=== PATIENT | male | born 1950 | race Caucasian/White ===

== ENCOUNTER 2022-09-02 07:34 | Inpatient (IN) | payer MEDICAID, MEDICARE ==
[~2022-09-02] VITALS: Ht 177.8 cm; Wt 99.9 kg
[2022-09-02] MEDS ORDERED: ACETAMINOPHEN 1000 MG/ISO-OSM 100 ML IV ONE (07:45)
[2022-09-02 07:52] LABS: BASOPHILS % (AUTO) 0.8 % (0.0-2.0); EOSINOPHILS % (AUTO) 0.1 % (1.0-6.0); HEMATOCRIT 47.5 % (41-53); HEMOGLOBIN 15.9 g/dL (13.5-17.5); LYMPHOCYTES # (AUTO) 1.6 K/uL (1.0-4.8); LYMPHOCYTES % (AUTO) 9.9 % (22.0-44.0); MEAN CORPUSCULAR HEMOGLOBIN 31.4 pg (26.0-34.0); MEAN CORPUSCULAR HGB CONC 33.5 G/dL (31.0-37.0); MEAN CORPUSCULAR VOLUME 94 fL (80-100); MONOCYTES # (AUTO) 1.2 K/uL (0.1-1.0); NEUTROPHILS # (AUTO) 13.5 K/uL (1.8-7.7); NEUTROPHILS % (AUTO) 82.2 % (40.0-70.0); PLATELET COUNT (AUTO) 209 K/uL (150-450); RED BLOOD CELL COUNT(AUTO) 5.05 MIL/uL (4.50-5.90); RED CELL DISTRIBUTION WIDTH 13.2 % (11.5-14.5)
[2022-09-02 08:02] LABS: ANION GAP 7 mmol/L (8-16); CALCIUM, TOTAL 9.7 mg/dL (8.8-10.5); CARBON DIOXIDE 29 mmol/L (22-29); CHLORIDE 98 mmol/L (98-107); CREATININE 1.31 mg/dL (0.60-1.30); GLUCOSE,RANDOM 158 mg/dL (70-110); POTASSIUM 4.2 mmol/L (3.5-5.1); SODIUM SERUM 134 mmol/L (136-145); UREA NITROGEN, BLOOD 14 mg/dL (7-18)
[2022-09-02 08:03] LABS: GLOMERULAR FILTR. RATE CALC 54 mL/min (>60)
[2022-09-02 08:08] LABS: D-DIMER 0.89 mg/L FEU (0.00-0.50); PROTHROMBIN TIME 10.7 SEC (9.4-11.6)
[2022-09-02] MEDS ORDERED: SODIUM CHLORIDE 0.9% 3,200 ML IV ONE (08:15)
[2022-09-02 08:17] LABS: APPEARANCE,URINE CLEAR (CLEAR); BILIRUBIN,URINE NEGATIVE (NEGATIVE); GLUCOSE, URINE (UA) NEGATIVE (NEGATIVE); KETONES,URINE NEGATIVE (NEGATIVE); LEUKOCYTE ESTERASE ,URINE NEGATIVE (NEGATIVE); NITRATE,URINE NEGATIVE (NEGATIVE); OCCULT BLOOD,URINE NEGATIVE (NEGATIVE); PH,URINE 6.5 (5.0-8.0); PROTEIN,URINE TRACE mg/dL (NEGATIVE); SPECIFIC GRAVITIY, URINE 1.015 (1.003-1.030); UROBILINOGEN,URINE <=1.0 mg/dL (<=1.0)
[2022-09-02 08:17] LABS: B-TYPE NATRIURETIC PEPTIDE 8 pg/mL (0-100)
[2022-09-02 08:19] LABS: LACTIC ACID 2.6 mmol/L (0.4-2.0)
[2022-09-02 08:22] LABS: COVID AG,FIA SOURCE NASAL SWAB
[2022-09-02 08:27] LABS: ALANINE AMINOTRANSFERASE 31 U/L (12-78); ALKALINE PHOSPHATASE 73 U/L (46-116); ASPARTATE AMINOTRANSFERASE 16 U/L (15-37); BILIRUBIN,TOTAL 0.6 mg/dL (0.1-1.0); CREATINE KINASE, TOTAL ONLY 104 U/L (39-308); TOTAL PROTEIN, SERUM 7.8 g/dL (6.4-8.2)
[2022-09-02] MEDS ORDERED: CefTRIAXone 1 GM/DEXTROSE 50 ML IV ONE (08:30)
[2022-09-02] MEDS ORDERED: AZITHROMYCIN 500 MG/NS 250 ML IV ONE (08:30)
[2022-09-02 08:33] LABS: INFLUENZA TYPE A NEGATIVE FOR TYPE A (NEGATIVE); INFLUENZA TYPE B NEGATIVE FOR TYPE B (NEGATIVE)
[2022-09-02] MEDS ORDERED: IOHEXOL 350 MG/ML 100 ML VIAL ONE ×2 (08:38→09:10)
[2022-09-02] MEDS ORDERED: SODIUM CHLORIDE 0.9% 100 ML ONE ×2 (08:38→09:10)
[2022-09-02 11:26] LABS: FREE T4 (FREE THYROXINE) 0.87 ng/dL (0.76-1.46); THYROID STIMULATING HORMONE 0.38 uIU/mL (0.36-3.74)
[2022-09-02 20:15] VITALS: BP 121/74
[2022-09-02] MEDS ORDERED: ACETAMINOPHEN 325 MG TABLET PO PRN (21:45)
[2022-09-02] MEDS ORDERED: ACET650S14 PR (22:13)
[2022-09-02] MEDS ORDERED: ASPI81TA87 PO (22:15)
[2022-09-02] MEDS ORDERED: CHOL200013 PO (22:17)
[2022-09-02] MEDS ORDERED: ACET-784 PO (22:29)
[2022-09-02] MEDS ORDERED: GABA600T PO (22:29)
[2022-09-02] MEDS ORDERED: VALB40CA2 PO (22:29)
[2022-09-02] MEDS ORDERED: SIMV-43 PO (22:29)
[2022-09-02] MEDS ORDERED: LACT10SO32 PO (22:29)
[2022-09-02] MEDS ORDERED: OMEG-135 PO (22:29)
[2022-09-02] MEDS ORDERED: CLON-592 PO (22:29)
[2022-09-02] MEDS ORDERED: RISP0.5T61 PO (22:29)
[2022-09-02] MEDS ORDERED: RISP1TAB89 PO (22:29)
[2022-09-02] MEDS ORDERED: ESCI-8 PO (22:29)
[2022-09-03 00:22] VITALS: BP 152/88
[2022-09-03] MEDS ORDERED: INFLUENZA VIRUS VACCINE QVS 2022-23 (6MO+)/PF 60 MCG/0.5 ML SYRINGE IM. ONE (01:15)
[2022-09-03 05:07] VITALS: BP 119/79
[2022-09-03 08:00] VITALS: BP 148/89
[2022-09-03] MEDS ORDERED: ASPIRIN 81 MG CHEWABLE TABLET PO SCH ×2 (08:00→09:17)
[2022-09-03] MEDS ORDERED: OMEGA-3/DHA/EPA/FISH OIL 1,000 MG CAPSULE PO SCH ×2 (09:00→09:17)
[2022-09-03] MEDS ORDERED: CHOLECALCIFEROL (VIT D3) 1,000 UNITS [25 MCG] TABLET PO SCH ×2 (09:00→09:17)
[2022-09-03] MEDS ORDERED: LACTULOSE 20 GM/30 ML SOLUTION UDCUP PO SCH ×2 (09:00→09:17)
[2022-09-03] MEDS ORDERED: ESCITALOPRAM OXALATE 10 MG TABLET PO SCH ×2 (09:00→09:16)
[2022-09-03 09:08] LABS: ANION GAP 8 mmol/L (8-16); CALCIUM, TOTAL 9.3 mg/dL (8.8-10.5); CARBON DIOXIDE 28 mmol/L (22-29); CHLORIDE 102 mmol/L (98-107); CREATININE 0.97 mg/dL (0.60-1.30); GLUCOSE,RANDOM 132 mg/dL (70-110); POTASSIUM 3.8 mmol/L (3.5-5.1); SODIUM SERUM 138 mmol/L (136-145); UREA NITROGEN, BLOOD 9 mg/dL (7-18)
[2022-09-03 09:09] LABS: GLOMERULAR FILTR. RATE CALC > 60 mL/min (>60)
[2022-09-03] MEDS ORDERED: RisperiDONE 0.5 MG TABLET PO SCH ×4 (09:17→21:00)
[2022-09-03] MEDS ORDERED: GABAPENTIN 300 MG CAPSULE PO SCH ×2 (09:17→12:00)
[2022-09-03] MEDS ORDERED: CHOLECALCIFEROL (VIT D3) 2,000 UNITS [50 MCG] TABLET PO SCH ×2 (09:24)
[2022-09-03 09:31] LABS: BASOPHILS % (AUTO) 0.4 % (0.0-2.0); EOSINOPHILS % (AUTO) 1.6 % (1.0-6.0); HEMATOCRIT 44.9 % (41-53); HEMOGLOBIN 15.2 g/dL (13.5-17.5); LYMPHOCYTES # (AUTO) 2.6 K/uL (1.0-4.8); LYMPHOCYTES % (AUTO) 22.3 % (22.0-44.0); MEAN CORPUSCULAR HEMOGLOBIN 31.8 pg (26.0-34.0); MEAN CORPUSCULAR HGB CONC 33.8 G/dL (31.0-37.0); MEAN CORPUSCULAR VOLUME 94 fL (80-100); MONOCYTES # (AUTO) 1.1 K/uL (0.1-1.0); MONOCYTES % (AUTO) 9.4 % (2.0-9.0); NEUTROPHILS # (AUTO) 7.8 K/uL (1.8-7.7); NEUTROPHILS % (AUTO) 66.3 % (40.0-70.0); PLATELET COUNT (AUTO) 183 K/uL (150-450); RED BLOOD CELL COUNT(AUTO) 4.78 MIL/uL (4.50-5.90)
[2022-09-03 09:40] LABS: ALANINE AMINOTRANSFERASE 20 U/L (12-78); ALBUMIN 3.5 g/dL (3.4-5.0); ALKALINE PHOSPHATASE 67 U/L (46-116); ASPARTATE AMINOTRANSFERASE 18 U/L (15-37); BILIRUBIN,TOTAL 0.8 mg/dL (0.1-1.0); TOTAL PROTEIN, SERUM 7.3 g/dL (6.4-8.2)
[2022-09-03] MEDS: ASPIRIN 81 MG DR TABLET PO SCH (11:01)
[2022-09-03] MEDS: CHOLECALCIFEROL (VIT D3) 2,000 UNITS [50 MCG] TABLET PO SCH (11:01)
[2022-09-03] MEDS: ESCITALOPRAM OXALATE 10 MG TABLET PO SCH (11:03)
[2022-09-03] MEDS: OMEGA-3/DHA/EPA/FISH OIL 1,000 MG CAPSULE PO SCH (11:04)
[2022-09-03] MEDS: LACTULOSE 20 GM/30 ML SOLUTION UDCUP PO SCH (11:04)
[2022-09-03] MEDS: GABAPENTIN 300 MG CAPSULE PO SCH (11:05)
[2022-09-03] MEDS: RisperiDONE 0.5 MG TABLET PO SCH (11:06)
[2022-09-03] MEDS: PIPERACILLIN/TAZO 3.375 GM/D5W 50 ML IV SCH ×2 (12:00→18:12)
[2022-09-03 12:05] VITALS: BP 128/59
[2022-09-03] MEDS ORDERED: SODIUM CHLORIDE 0.9% 250 ML IV ONE (14:33)
[2022-09-03 16:10] VITALS: BP 113/63
[2022-09-03 20:53] VITALS: BP 123/53
[2022-09-03] MEDS ORDERED: SIMVASTATIN 20 MG TABLET PO SCH ×2 (21:00)
[2022-09-03] MEDS ORDERED: ClonazePAM 0.5 MG TABLET PO SCH ×2 (21:00)
[2022-09-03] MEDS: RisperiDONE 1 MG TABLET PO SCH (21:08)
[2022-09-03] MEDS: ClonazePAM 0.5 MG TABLET PO SCH (21:09)
[2022-09-03] MEDS: SIMVASTATIN 20 MG TABLET PO SCH (21:09)
[2022-09-04] MEDS: PIPERACILLIN/TAZO 3.375 GM/D5W 50 ML IV SCH ×4 (00:33→17:43)
[2022-09-04 00:44] LABS: ABG BASE EXCESS 0.3 mmol/L (-2.0-3.0); ABG CARBOXYHEMOGLOBIN 1.6 % (0.0-1.5); ABG HCO3 24.6 mmol/L (22.0-26.0); ABG METHEMOGLOBIN 0.3 % (0.0-1.5); ABG OXYGEN CONTENT 20.7 mL/dL (15.0-23.0); ABG OXYGEN SATURATION 96.4 % (95.0-98.0); ABG OXYHEMOGLOBIN 94.6 % (94.0-100.0); ABG PCO2 43 mmHg (35-45); ABG PH 7.388 (7.35-7.450); ABG TOTAL HEMOGLOBIN 15.5 G/dL (12.0-18.0); PO2, ARTERIAL BG 88.5 mmHg (75.0-83.0); SOURCE, BLOOD GAS ARTERIAL; TEMPERATURE, FAHRENHEIT, BG 98.8 FAHREN (96.0-98.6)
[2022-09-04 00:45] VITALS: BP 131/68
[2022-09-04 00:46] LABS: ABG A-A DIFF O2 60.4 mmHg (10-20.0); O2 DEVICE,BLOOD GAS CANNULA (ROOM AIR); SITE, BLOOD GAS LFT RADIAL
[2022-09-04 06:06] VITALS: BP 118/74
[2022-09-04 07:08] LABS: BASOPHILS % (AUTO) 0.3 % (0.0-2.0); EOSINOPHILS % (AUTO) 1.9 % (1.0-6.0); HEMATOCRIT 43.9 % (41-53); HEMOGLOBIN 14.8 g/dL (13.5-17.5); LYMPHOCYTES # (AUTO) 2.1 K/uL (1.0-4.8); LYMPHOCYTES % (AUTO) 16.3 % (22.0-44.0); MEAN CORPUSCULAR HEMOGLOBIN 31.7 pg (26.0-34.0); MEAN CORPUSCULAR HGB CONC 33.7 G/dL (31.0-37.0); MEAN CORPUSCULAR VOLUME 94 fL (80-100); MONOCYTES # (AUTO) 1.3 K/uL (0.1-1.0); MONOCYTES % (AUTO) 10.2 % (2.0-9.0); NEUTROPHILS % (AUTO) 71.3 % (40.0-70.0); PLATELET COUNT (AUTO) 189 K/uL (150-450); RED BLOOD CELL COUNT(AUTO) 4.66 MIL/uL (4.50-5.90); RED CELL DISTRIBUTION WIDTH 12.8 % (11.5-14.5)
[2022-09-04 07:30] LABS: CALCIUM, TOTAL 9.1 mg/dL (8.8-10.5); CREATININE 1.2 mg/dL (0.60-1.30)
[2022-09-04 08:05] VITALS: BP 119/74
[2022-09-04] MEDS ORDERED: MISC MED-CONVERTED FROM AMBULATORY (Valbenazine Tosylate (Ingrezza) 1 CAPSULE) PO SCH (09:00)
[2022-09-04] MEDS: LACTULOSE 20 GM/30 ML SOLUTION UDCUP PO SCH (09:02)
[2022-09-04] MEDS: OMEGA-3/DHA/EPA/FISH OIL 1,000 MG CAPSULE PO SCH (09:03)
[2022-09-04] MEDS: CHOLECALCIFEROL (VIT D3) 2,000 UNITS [50 MCG] TABLET PO SCH (09:03)
[2022-09-04] MEDS: ASPIRIN 81 MG DR TABLET PO SCH (09:04)
[2022-09-04] MEDS: RisperiDONE 0.5 MG TABLET PO SCH (09:04)
[2022-09-04] MEDS: ESCITALOPRAM OXALATE 10 MG TABLET PO SCH (09:04)
[2022-09-04] MEDS: ACETAMINOPHEN 325 MG TABLET PO PRN (11:04)
[2022-09-04] MEDS: GABAPENTIN 300 MG CAPSULE PO SCH (12:06)
[2022-09-04 12:15] VITALS: BP 116/75
[2022-09-04 16:20] VITALS: BP 112/75
[2022-09-04 20:45] VITALS: BP 121/66
[2022-09-04] MEDS: ClonazePAM 0.5 MG TABLET PO SCH (20:55)
[2022-09-04] MEDS: SIMVASTATIN 20 MG TABLET PO SCH (20:55)
[2022-09-04] MEDS: RisperiDONE 1 MG TABLET PO SCH (22:05)
[2022-09-05] MEDS: PIPERACILLIN/TAZO 3.375 GM/D5W 50 ML IV SCH ×5 (00:04→23:33)
[2022-09-05 00:20] VITALS: BP 118/81
[2022-09-05 04:30] VITALS: BP 125/76
[2022-09-05 07:47] VITALS: BP 105/78
[2022-09-05 08:26] LABS: BASOPHILS % (AUTO) 0.6 % (0.0-2.0); EOSINOPHILS % (AUTO) 2.8 % (1.0-6.0); HEMATOCRIT 41.9 % (41-53); HEMOGLOBIN 14.2 g/dL (13.5-17.5); LYMPHOCYTES # (AUTO) 1.8 K/uL (1.0-4.8); LYMPHOCYTES % (AUTO) 16.5 % (22.0-44.0); MEAN CORPUSCULAR HEMOGLOBIN 31.6 pg (26.0-34.0); MEAN CORPUSCULAR HGB CONC 33.8 G/dL (31.0-37.0); MEAN CORPUSCULAR VOLUME 94 fL (80-100); MONOCYTES # (AUTO) 1.1 K/uL (0.1-1.0); MONOCYTES % (AUTO) 9.7 % (2.0-9.0); NEUTROPHILS # (AUTO) 7.8 K/uL (1.8-7.7); NEUTROPHILS % (AUTO) 70.4 % (40.0-70.0); PLATELET COUNT (AUTO) 201 K/uL (150-450); RED BLOOD CELL COUNT(AUTO) 4.48 MIL/uL (4.50-5.90); RED CELL DISTRIBUTION WIDTH 12.7 % (11.5-14.5)
[2022-09-05] MEDS: OMEGA-3/DHA/EPA/FISH OIL 1,000 MG CAPSULE PO SCH (08:40)
[2022-09-05] MEDS: ASPIRIN 81 MG DR TABLET PO SCH (08:40)
[2022-09-05] MEDS: CHOLECALCIFEROL (VIT D3) 2,000 UNITS [50 MCG] TABLET PO SCH (08:40)
[2022-09-05] MEDS: RisperiDONE 0.5 MG TABLET PO SCH (08:41)
[2022-09-05] MEDS: ESCITALOPRAM OXALATE 10 MG TABLET PO SCH (08:41)
[2022-09-05 08:45] LABS: ANION GAP 7 mmol/L (8-16); CARBON DIOXIDE 28 mmol/L (22-29); CHLORIDE 101 mmol/L (98-107); CREATININE 1.13 mg/dL (0.60-1.30); GLUCOSE,RANDOM 148 mg/dL (70-110); POTASSIUM 4.2 mmol/L (3.5-5.1); SODIUM SERUM 136 mmol/L (136-145); UREA NITROGEN, BLOOD 12 mg/dL (7-18)
[2022-09-05] MEDS: LACTULOSE 20 GM/30 ML SOLUTION UDCUP PO SCH (08:45)
[2022-09-05 08:46] LABS: GLOMERULAR FILTR. RATE CALC > 60 mL/min (>60)
[2022-09-05 11:46] VITALS: BP 115/55
[2022-09-05] MEDS: GABAPENTIN 300 MG CAPSULE PO SCH (12:24)
[2022-09-05 14:00] VITALS: BP 116/52
[2022-09-05] MEDS: DOXYCYCLINE HYCLATE 100 MG in DEXTROSE 5%-WATER 100 ML IV SCH (17:19)
[2022-09-05] MEDS: SIMVASTATIN 20 MG TABLET PO SCH (20:57)
[2022-09-05] MEDS: RisperiDONE 1 MG TABLET PO SCH (20:58)
[2022-09-05] MEDS: ClonazePAM 0.5 MG TABLET PO SCH (20:58)
[2022-09-05 21:04] VITALS: BP 103/54
[2022-09-05] MEDS: ACETAMINOPHEN 325 MG TABLET PO PRN (22:50)
[2022-09-06 00:15] VITALS: BP 106/59
[2022-09-06] MEDS: DOXYCYCLINE HYCLATE 100 MG in DEXTROSE 5%-WATER 100 ML IV SCH ×2 (04:46→16:40)
[2022-09-06] MEDS: PIPERACILLIN/TAZO 3.375 GM/D5W 50 ML IV SCH ×3 (06:02→17:44)
[2022-09-06 06:33] LABS: BASOPHILS % (AUTO) 0.3 % (0.0-2.0); EOSINOPHILS % (AUTO) 5.4 % (1.0-6.0); HEMATOCRIT 39.4 % (41-53); HEMOGLOBIN 13.4 g/dL (13.5-17.5); LYMPHOCYTES # (AUTO) 1.7 K/uL (1.0-4.8); LYMPHOCYTES % (AUTO) 19.2 % (22.0-44.0); MEAN CORPUSCULAR HEMOGLOBIN 31.8 pg (26.0-34.0); MEAN CORPUSCULAR HGB CONC 34.1 G/dL (31.0-37.0); MEAN CORPUSCULAR VOLUME 93 fL (80-100); MONOCYTES # (AUTO) 1.2 K/uL (0.1-1.0); MONOCYTES % (AUTO) 13.2 % (2.0-9.0); NEUTROPHILS # (AUTO) 5.6 K/uL (1.8-7.7); NEUTROPHILS % (AUTO) 61.9 % (40.0-70.0); PLATELET COUNT (AUTO) 194 K/uL (150-450); RED BLOOD CELL COUNT(AUTO) 4.22 MIL/uL (4.50-5.90); RED CELL DISTRIBUTION WIDTH 12.6 % (11.5-14.5)
[2022-09-06 06:46] LABS: ANION GAP 10 mmol/L (8-16); CALCIUM, TOTAL 8.9 mg/dL (8.8-10.5); CARBON DIOXIDE 26 mmol/L (22-29); CHLORIDE 102 mmol/L (98-107); GLUCOSE,RANDOM 181 mg/dL (70-110); POTASSIUM 3.8 mmol/L (3.5-5.1); SODIUM SERUM 138 mmol/L (136-145); UREA NITROGEN, BLOOD 11 mg/dL (7-18)
[2022-09-06 06:47] LABS: GLOMERULAR FILTR. RATE CALC > 60 mL/min (>60)
[2022-09-06 07:26] VITALS: BP 109/66
[2022-09-06] MEDS: OMEGA-3/DHA/EPA/FISH OIL 1,000 MG CAPSULE PO SCH ×2 (09:00→13:55)
[2022-09-06] MEDS: CHOLECALCIFEROL (VIT D3) 2,000 UNITS [50 MCG] TABLET PO SCH ×2 (09:00→13:57)
[2022-09-06] MEDS: ASPIRIN 81 MG DR TABLET PO SCH ×2 (09:00→13:56)
[2022-09-06] MEDS: LACTULOSE 20 GM/30 ML SOLUTION UDCUP PO SCH ×2 (09:00→13:55)
[2022-09-06 11:33] VITALS: BP 112/68
[2022-09-06] MEDS ORDERED: FentaNYL CITRATE PF 100 MCG/2 ML VIAL ONE (12:46)
[2022-09-06] MEDS: RisperiDONE 0.5 MG TABLET PO SCH (13:55)
[2022-09-06] MEDS: ESCITALOPRAM OXALATE 10 MG TABLET PO SCH (13:56)
[2022-09-06] MEDS: ACETAMINOPHEN 325 MG TABLET PO PRN (14:04)
[2022-09-06 15:57] VITALS: BP 104/79
[2022-09-06] MEDS: GABAPENTIN 300 MG CAPSULE PO SCH (15:58)
[2022-09-06 20:05] VITALS: BP 130/81
[2022-09-06] MEDS: ClonazePAM 0.5 MG TABLET PO SCH (20:53)
[2022-09-06] MEDS: RisperiDONE 1 MG TABLET PO SCH (20:53)
[2022-09-06] MEDS: SIMVASTATIN 20 MG TABLET PO SCH (20:54)
[2022-09-07] MEDS: PIPERACILLIN/TAZO 3.375 GM/D5W 50 ML IV SCH ×4 (00:12→17:36)
[2022-09-07 00:32] VITALS: BP 117/69
[2022-09-07] MEDS: DOXYCYCLINE HYCLATE 100 MG in DEXTROSE 5%-WATER 100 ML IV SCH ×2 (05:50→15:59)
[2022-09-07 06:25] VITALS: BP 115/66
[2022-09-07 08:25] VITALS: BP 115/70
[2022-09-07] MEDS: LACTULOSE 20 GM/30 ML SOLUTION UDCUP PO SCH (09:06)
[2022-09-07] MEDS: ASPIRIN 81 MG DR TABLET PO SCH (09:07)
[2022-09-07] MEDS: CHOLECALCIFEROL (VIT D3) 2,000 UNITS [50 MCG] TABLET PO SCH (09:07)
[2022-09-07] MEDS: RisperiDONE 0.5 MG TABLET PO SCH (09:07)
[2022-09-07] MEDS: OMEGA-3/DHA/EPA/FISH OIL 1,000 MG CAPSULE PO SCH (09:07)
[2022-09-07] MEDS: ESCITALOPRAM OXALATE 10 MG TABLET PO SCH (09:07)
[2022-09-07] MEDS: GABAPENTIN 300 MG CAPSULE PO SCH (11:27)
[2022-09-07] MEDS ORDERED: SODIUM CHLORIDE 0.9% 500 ML IV ONE (11:33)
[2022-09-07 12:55] VITALS: BP 118/67
[2022-09-07 16:04] VITALS: BP 114/68
[2022-09-07 20:15] VITALS: BP 114/73
[2022-09-07] MEDS: SIMVASTATIN 20 MG TABLET PO SCH (22:08)
[2022-09-07] MEDS: ClonazePAM 0.5 MG TABLET PO SCH (22:08)
[2022-09-07] MEDS: ACETAMINOPHEN 325 MG TABLET PO PRN (22:08)
[2022-09-07] MEDS: RisperiDONE 1 MG TABLET PO SCH (22:08)
[2022-09-08] VITALS (8 sets, daily range): BP systolic 112–125; BP diastolic 64–86
[2022-09-08] MEDS: PIPERACILLIN/TAZO 3.375 GM/D5W 50 ML IV SCH ×3 (00:58→11:45)
[2022-09-08] MEDS: DOXYCYCLINE HYCLATE 100 MG in DEXTROSE 5%-WATER 100 ML IV SCH (05:05)
[2022-09-08] MEDS: RisperiDONE 0.5 MG TABLET PO SCH (07:46)
[2022-09-08] MEDS: LACTULOSE 20 GM/30 ML SOLUTION UDCUP PO SCH (07:46)
[2022-09-08] MEDS: OMEGA-3/DHA/EPA/FISH OIL 1,000 MG CAPSULE PO SCH (07:46)
[2022-09-08] MEDS: CHOLECALCIFEROL (VIT D3) 2,000 UNITS [50 MCG] TABLET PO SCH (07:46)
[2022-09-08] MEDS: ASPIRIN 81 MG DR TABLET PO SCH (07:47)
[2022-09-08] MEDS: ESCITALOPRAM OXALATE 10 MG TABLET PO SCH (07:47)
[2022-09-08] MEDS: GABAPENTIN 300 MG CAPSULE PO SCH (11:45)
[2022-09-08] MEDS: AMOX TR/POT CLAV 875 MG/125 MG TABLET PO SCH ×2 (15:11→20:17)
[2022-09-08] MEDS: SIMVASTATIN 20 MG TABLET PO SCH (20:17)
[2022-09-08] MEDS: RisperiDONE 1 MG TABLET PO SCH (20:17)
[2022-09-08] MEDS: ClonazePAM 0.5 MG TABLET PO SCH (20:17)
[2022-09-08] MEDS: DOXYCYCLINE HYCLATE 100 MG TABLET PO SCH (20:17)
[2022-09-09 05:13] VITALS: BP 148/79
[2022-09-09 07:20] VITALS: BP 142/76
[2022-09-09] MEDS: LACTULOSE 20 GM/30 ML SOLUTION UDCUP PO SCH (08:40)
[2022-09-09] MEDS: CHOLECALCIFEROL (VIT D3) 2,000 UNITS [50 MCG] TABLET PO SCH (08:40)
[2022-09-09] MEDS: ESCITALOPRAM OXALATE 10 MG TABLET PO SCH (08:40)
[2022-09-09] MEDS: ASPIRIN 81 MG DR TABLET PO SCH (08:40)
[2022-09-09] MEDS: AMOX TR/POT CLAV 875 MG/125 MG TABLET PO SCH (08:40)
[2022-09-09] MEDS: RisperiDONE 0.5 MG TABLET PO SCH (08:40)
[2022-09-09] MEDS: OMEGA-3/DHA/EPA/FISH OIL 1,000 MG CAPSULE PO SCH (08:40)
[2022-09-09] MEDS: DOXYCYCLINE HYCLATE 100 MG TABLET PO SCH (08:40)
[2022-09-09] MEDS: ACETAMINOPHEN 325 MG TABLET PO PRN (08:40)
[2022-09-09 11:33] VITALS: BP 129/71
[2022-09-09] MEDS: GABAPENTIN 300 MG CAPSULE PO SCH (12:10)
[2022-09-09 15:12] LABS: COVID AG,FIA SOURCE NASOPHARYNGEAL
[2022-09-09] MEDS ORDERED: RisperiDONE 0.5 MG TABLET PO SCH (21:00)
== END 2022-09-09 14:10 | DRG 720 ==
LOC: EMS 07:38 → 5S 18:12
PROVIDERS: ADMIT Hospitalist; ATTEND Hospitalist
DX: A41.9 Sepsis, unspecified organism (principal); G93.40 Encephalopathy, unspecified; J47.0 Bronchiectasis with acute lower respiratory infection; J18.9 Pneumonia, unspecified organism; J47.1 Bronchiectasis with (acute) exacerbation; I10 Essential (primary) hypertension; E07.9 Disorder of thyroid, unspecified; J43.9 Emphysema, unspecified; F20.9 Schizophrenia, unspecified; F31.9 Bipolar disorder, unspecified; Z20.822 Contact with and (suspected) exposure to COVID-19; E78.00 Pure hypercholesterolemia, unspecified; R09.02 Hypoxemia; R06.89 Other abnormalities of breathing; Z79.899 Other long term (current) drug therapy; Z87.820 Personal history of traumatic brain injury; Z79.82 Long term (current) use of aspirin
CPT/HCPCS: 36600; 51702; 70450; 70498; 71045; 71275; 76536; 80048; 80053; 81003; 82550; 82805; 83605; 83880; 84145; 84439; 84443; 84484; 85025; 85379; 85610; 85730; 87040; 87081; 87449; 87804; 90686; 92526; 92610; 93005; J0131; J0456; J0696; J2543; J3010; J3490; J7040; J7050; J7060; Q9967; 36415-L1; 36415-TC; G0008